=== PATIENT | male | born 1980 | race American Indian/Alaskan Native ===

== ENCOUNTER 2016-11-21 21:46 | Emergency (ER) | payer OTHER ==
[2016-11-22] MEDS ORDERED: NORCO 5/325 PO ONE (02:10)
--- NOTE | 2016-11-22 02:15 | Emergency Department Report ---
HPI - General Chief Complaint: Upper Respiratory Infection Time Seen by Provider: 11/22/16 02:03 - HPI HPI: 35-year-old male presents today with sore throat and chest pain 2 days. Positive for cough and congestion. Patient states that his children have been sick at home. Denies fever, chills, nausea, vomiting, shortness of breath, abdominal pain. Tried an antibiotic, name unknown, without relief. Positive for history of bronchitis and states this feels similar. ED Past Medical Hx - Past Medical History Previous Medical History?: Yes Additional medical history: BACK PROBLEMS /CHRONIC PAIN. BRONCHITIS - Surgical History Past Surgical History?: Yes Additional Surgical History: Right leg surgery from [facility] - Social History Smoking Status: Never Smoker Substance Use Type: None - Medications Home Medications: Home Medications Medication Instructions Recorded Confirmed Last Taken Type HYDROcodone/APAP 5-325 [[place] 1 each PO Q6HR PRN #20 tablet 09/15/15 Unknown Rx 5/325] predniSONE [Deltasone] 40 mg PO QDAY 5 Days 09/15/15 Unknown Rx Albuterol Sulfate [Ventolin HFA] 2 puff IH Q4H PRN #1 hfa.aer.ad 11/22/16 Unknown Rx Azithromycin [Zithromax Z-LOBITO] 1 pack PO DAILY 5 Days 11/22/16 Unknown Rx Promethazine Dm [Phenergan DM 5 ml PO Q6H PRN #30 oral.liqd 11/22/16 Unknown Rx 6.25-15 mg/5 ml] ED Review of Systems ROS: Stated complaint: COUGH/HEAD PAIN Other details as noted in HPI Constitutional: denies: chills, fever, malaise Eyes: denies: eye pain ENT: throat pain, congestion. denies: ear pain Respiratory: cough. denies: shortness of breath, wheezing Cardiovascular: chest pain. denies: palpitations Endocrine: no symptoms reported Gastrointestinal: denies: abdominal pain, nausea, vomiting Neurological: denies: headache, weakness Physical Exam - Physical Exam Vital Signs: Vital Signs 11/21/16 22:34 Temperature 98.2 F Pulse Rate 88 Blood Pressure 119/66 O2 Sat by Pulse 100 Oximetry Physical Exam: GENERAL: The patient is well-developed and well-nourished. Patient is in NAD. HEAD: Normocephalic. Atraumatic. EYES: PERRL. EARS: External auditory canals and tympanic membranes clear; hearing grossly intact. NOSE: Normal nasal mucosa with no nasal discharge. THROAT: Positive for erythema and tonsillomegaly. No tonsillar exudates noted. NECK: Supple, nontender, without lymphadenopathy. CHEST/LUNGS: Clear to auscultation throughout. HEART/CARDIOVASCULAR: Regular rate and rhythm. ABDOMEN: Abdomen is soft, nontender. No guarding or rebound tenderness. EXTREMITIES: Peripheral pulses intact. Capillary refill less than 2 seconds. NEURO: Alert and oriented x 3. Normal gait. ED Course Vital Signs 11/21/16 22:34 Temperature 98.2 F Pulse Rate 88 Blood Pressure 119/66 O2 Sat by Pulse 100 Oximetry ED Medical Decision Making - Lab Data Result diagrams: 11/22/16 02:41 11/22/16 02:41 Vital Signs 11/21/16 11/22/16 22:34 02:40 Temperature 98.2 F Pulse Rate 88 Respiratory 18 Rate Blood Pressure 119/66 O2 Sat by Pulse 100 Oximetry Lab Results 11/22/16 11/22/16 Range/Units 02:41 02:41 WBC 12.3 H (4.5-11.0) K/mm3 RBC 3.66 (3.65-5.03) M/mm3 Hgb 12.8 (11.8-15.2) gm/dl Hct 37.7 (35.5-45.6) % MCV 103 H (84-94) fl MCH 35 H (28-32) pg MCHC 34 (32-34) % RDW 12.5 L (13.2-15.2) % Plt Count 224 (140-440) K/mm3 Lymph % (Auto) 22.0 (13.4-35.0) % Piatt % (Auto) 8.0 H (0.0-7.3) % Eos % (Auto) 1.1 (0.0-4.3) % Baso % (Auto) 0.5 (0.0-1.8) % Lymph # 2.7 (1.2-5.4) K/mm3 Piatt # 1.0 H (0.0-0.8) K/mm3 Eos # 0.1 (0.0-0.4) K/mm3 Baso # 0.1 (0.0-0.1) K/mm3 Seg Neutrophils % 68.4 (40.0-70.0) % Seg Neutrophils # 8.4 H (1.8-7.7) K/mm3 Sodium 136 L (137-145) mmol/L Potassium 3.7 (3.6-5.0) mmol/L Chloride 100.0 (98-107) mmol/L Carbon Dioxide 26 (22-30) mmol/L Anion Gap 14 mmol/L BUN 10 (9-20) mg/dL Creatinine 0.6 L (0.8-1.5) mg/dL Estimated GFR > 60 ml/min BUN/Creatinine Ratio 16.66 % Glucose 80 (75-100) mg/dL Calcium 8.6 (8.4-10.2) mg/dL Total Creatine Kinase 183 H (55-170) units/L CK-MB (CK-2) 2.8 (0.0-4.0) ng/mL CK-MB (CK-2) Rel Index 1.5 (0-4) Troponin T < 0.010 (0.00-0.029) ng/mL - EKG Data -: EKG Interpreted by Me EKG shows normal: sinus rhythm Rate: normal - Radiology Data Radiology results: report reviewed Chest x-ray: Normal heart size. No pleural effusion or pneumothorax. Lungs are clear. No vascular congestion. - Medical Decision Making 35-year-old male presents today with sore throat and chest pain 2 days. His chest x-ray results revealed no acute findings. His lab results and EKG were reviewed. Patient is in no acute distress at this time. He will be discharged home and is encouraged to follow up with a primary care provider. He will be sent home on Z-Lobito, albuterol and promethazine DM and is encouraged to return to the emergency room for any worsening symptoms. Critical care attestation.: If time is entered above; I have spent that time in minutes in the direct care of this critically ill patient, excluding procedure time. ED Disposition Clinical Impression: Bronchitis Chest pain Qualifiers: Chest pain type: unspecified Qualified Code(s): R07.9 - Chest pain, unspecified URI (upper respiratory infection) Qualifiers: URI type: unspecified URI Qualified Code(s): J06.9 - Acute upper respiratory infection, unspecified Disposition: DISCHARGED TO HOME OR SELFCARE Is pt being admited?: No Does the pt Need Aspirin: No Condition: Stable Instructions: Chest Pain (ED), Upper Respiratory Infection (ED), Acute Bronchitis (ED) Additional Instructions: Follow-up with primary care provider. Return to the emergency department if symptoms worsen. Prescriptions: Albuterol Sulfate [Ventolin HFA] 2 puff IH Q4H PRN #1 hfa.aer.ad PRN Reason: Shortness Of Breath Azithromycin [Zithromax Z-LOBITO] 1 pack PO DAILY 5 Days Promethazine Dm [Phenergan DM 6.25-15 mg/5 ml] 5 ml PO Q6H PRN #30 oral.liqd PRN Reason: Cough Referrals: PRIMARY CARE, [Primary Care Provider] - 3-5 Days [facility] [Outside] - 3-5 Days Forms: Accompanied Note, Work/School Release Form(ED) Time of Disposition: 03:39
--- NOTE | 2016-11-22 02:37 | XRay Report ---
FINAL REPORT EXAM: XR CHEST ROUTINE 2V HISTORY: Chest Pain TECHNIQUE: 2 views of the chest PRIORS: 09/15/2015 FINDINGS: Normal heart size. No pleural effusion or pneumothorax. Lungs are clear. No vascular congestion. IMPRESSION: 1. No acute finding.
[2016-11-22 02:51] LABS: Basophils % (Auto) 0.5 % (0.0-1.8); Eosinophils % (Auto) 1.1 % (0.0-4.3); Hematocrit 37.7 % (35.5-45.6); Hemoglobin 12.8 gm/dl (11.8-15.2); Mean Corpuscular HGB Conc 34 % (32-34); Mean Corpuscular Hemoglobin 35 pg (28-32); Mean Corpuscular Volume 103 fl (84-94); Platelet Count 224 K/mm3 (140-440); Red Blood Count 3.66 M/mm3 (3.65-5.03); Red Cell Distribution Width 12.5 % (13.2-15.2); White Blood Count 12.3 K/mm3 (4.5-11.0)
[2016-11-22 03:07] LABS: Creatine Kinase MB 2.8 ng/mL (0.0-4.0)
[2016-11-22 03:08] LABS: Anion Gap 14 mmol/L; BUN/Creatinine Ratio 16.66; Blood Urea Nitrogen 10 mg/dL (9-20); Calcium 8.6 mg/dL (8.4-10.2); Carbon Dioxide 26 mmol/L (22-30); Creatine Kinase 183 units/L (55-170); Glucose 80 mg/dL (75-100); Potassium 3.7 mmol/L (3.6-5.0); Sodium 136 mmol/L (137-145)
[2016-11-22 04:05] VITALS: BP 120/72
== END 2016-11-22 04:09 | disposition home or self-care (01) ==
LOC: ED 21:46
DX: J40 Bronchitis, not specified as acute or chronic (principal); R07.9 Chest pain, unspecified; J06.9 Acute upper respiratory infection, unspecified; G89.29 Other chronic pain
CPT/HCPCS: 36415; 71020; 80048; 82550; 82553; 84484; 85025; 87116; 87430; 93005; 93010

== ENCOUNTER 2017-10-22 19:44 | Emergency (ER) | payer OTHER ==
[2017-10-22 20:16] VITALS: BP 120/77
[2017-10-22] MEDS ORDERED: PROVENTIL IH ONE (23:26)
[2017-10-22] MEDS ORDERED: ATROVENT IH ONE (23:26)
[2017-10-22] MEDS ORDERED: DUONEB *Not for PRN Use IH ONE (23:26)
--- NOTE | 2017-10-22 23:32 | Emergency Department Report ---
- General Chief Complaint: Upper Respiratory Infection Stated Complaint: COLD Time Seen by Provider: 10/22/17 23:25 Source: patient Mode of arrival: Ambulatory Limitations: No Limitations (she is not altered and there are no physical limitations as well as no language) - History of Present Illness Initial Comments: 36-year-old male here with a complaint of one week of coughing, body aches, chills, and congestion. He also complains of bone pain for a week. His symptoms she have been worse for the past couple of days. States that he just wants prescriptions for pain and antibiotics. He also has sick children at home. He is here with a productive cough with green sputum and using Mucinex at home. Patient is a smoker and had similar symptoms last year MD Complaint: fever, cough, rhinorrhea, nasal congestion -: week(s) (1) Severity: moderate Severity scale (0 -10): 2 Quality: aching Consistency: constant Improves With: other (Mucinex expectorant) Context: sick contacts (children and also at work) Associated Symptoms: myalgias, rhinorrhea, nasal congestion, cough Treatments Prior to Arrival: other (Mucinex) - Related Data Previous Rx's Medication Instructions Recorded Last Taken Type predniSONE [Deltasone] 40 mg PO QDAY 5 Days tab 09/15/15 Unknown Rx Promethazine Dm [Phenergan DM 5 ml PO Q6H PRN #30 oral.liqd 11/22/16 Unknown Rx 6.25-15 mg/5 ml] Albuterol Sulfate [Ventolin HFA] 2 puff IH Q4H PRN #1 hfa.aer.ad 10/23/17 Unknown Rx Azithromycin [Zithromax Z-LOBITO] 1 pack PO DAILY 5 Days tab 10/23/17 Unknown Rx HYDROcodone/APAP 5-325 [[place] 1 each PO Q6HR PRN #10 tablet 10/23/17 Unknown Rx 5-325 mg TAB] Allergies Allergy/AdvReac Type Severity Reaction Status Date / Time ibuprofen [From Motrin] Allergy Vomiting Verified 10/22/17 20:13 ED Review of Systems ROS: Stated complaint: COLD Other details as noted in HPI Constitutional: chills, fever Eyes: denies: eye pain, eye discharge, vision change ENT: denies: ear pain, throat pain Respiratory: cough. denies: shortness of breath, wheezing Cardiovascular: chest pain (with cough). denies: palpitations Endocrine: no symptoms reported Gastrointestinal: denies: abdominal pain, nausea, diarrhea Genitourinary: denies: urgency, dysuria Musculoskeletal: arthralgia, myalgia. denies: back pain, joint swelling Skin: denies: rash, lesions Neurological: denies: headache, weakness, paresthesias Psychiatric: denies: anxiety, depression Hematological/Lymphatic: denies: easy bleeding, easy bruising ED Past Medical Hx - Past Medical History Previous Medical History?: Yes Additional medical history: BACK PROBLEMS /CHRONIC PAIN. BRONCHITIS - Surgical History Past Surgical History?: Yes Additional Surgical History: Right leg surgery from [facility] - Family History Family history: hypertension - Social History Smoking Status: Current Some Day Smoker Substance Use Type: Marijuana - Medications Home Medications: Home Medications Medication Instructions Recorded Confirmed Last Taken Type predniSONE [Deltasone] 40 mg PO QDAY 5 Days tab 09/15/15 Unknown Rx Promethazine Dm [Phenergan DM 5 ml PO Q6H PRN #30 oral.liqd 11/22/16 Unknown Rx 6.25-15 mg/5 ml] Albuterol Sulfate [Ventolin HFA] 2 puff IH Q4H PRN #1 hfa.aer.ad 10/23/17 Unknown Rx Azithromycin [Zithromax Z-LOBITO] 1 pack PO DAILY 5 Days tab 10/23/17 Unknown Rx HYDROcodone/APAP 5-325 [[place] 1 each PO Q6HR PRN #10 tablet 10/23/17 Unknown Rx 5-325 mg TAB] ED Physical Exam - General Limitations: No Limitations (no altered mental status no physical limitation no language barrier), Other (smells of cigarette smoke) General appearance: alert, in no apparent distress - Head Head exam: Present: atraumatic, normocephalic - Eye Eye exam: Present: normal appearance, EOMI - ENT ENT exam: Present: mucous membranes moist - Neck Neck exam: Present: full ROM - Respiratory Respiratory exam: Present: wheezes (wheezing in the left lung field, right lung field is clear), rhonchi (left long rhonchi, right lung is clear). Absent: respiratory distress - Cardiovascular Cardiovascular Exam: Present: regular rate, normal rhythm - GI/Abdominal GI/Abdominal exam: Present: soft. Absent: distended, tenderness, guarding, rebound - Rectal Rectal exam: Present: deferred - Extremities Exam Extremities exam: Present: normal inspection, full ROM - Back Exam Back exam: Present: normal inspection, full ROM - Neurological Exam Neurological exam: Present: alert, oriented X3, CN II-XII intact - Psychiatric Psychiatric exam: Present: normal affect, normal mood - Skin Skin exam: Present: warm, dry, intact, normal color ED Course Vital Signs 10/22/17 20:13 Temperature 97.5 F L Pulse Rate 88 Respiratory 14 Rate Blood Pressure 120/77 O2 Sat by Pulse 100 Oximetry ED Medical Decision Making - Radiology Data Radiology results: report reviewed (chest x-ray: Mild hyperinflation, no acute findings) Critical care attestation.: If time is entered above; I have spent that time in minutes in the direct care of this critically ill patient, excluding procedure time. ED Disposition Clinical Impression: Viral syndrome Acute bronchitis Qualifiers: Bronchitis organism: unspecified organism Qualified Code(s): J20.9 - Acute bronchitis, unspecified Disposition: - TO HOME OR SELFCARE Is pt being admited?: Yes Does the pt Need Aspirin: No Condition: Stable Instructions: Acute Bronchitis (ED) Additional Instructions: Please follow-up with your doctor in 2 days. He may return to the emergency department if your symptoms worsen or if he would experience new symptoms. Please stop smoking cigarettes. Please ask her doctor for help if you need help in stopping cigarette smoking. If you have chest pain shortness of breath that is different from what you're having today please return to emergency department. Prescriptions: Albuterol Sulfate [Ventolin HFA] 2 puff IH Q4H PRN #1 hfa.aer.ad PRN Reason: Shortness Of Breath Azithromycin [Zithromax Z-LOBITO] 1 pack PO DAILY 5 Days tab HYDROcodone/APAP 5-325 [[place] 5-325 mg TAB] 1 each PO Q6HR PRN #10 tablet PRN Reason: Pain Referrals: ANA CASSIDY MD [Primary Care Provider] - 3-5 Days [facility] [Outside] - 3-5 Days [facility] [Outside] - 3-5 Days Forms: Work/School Release Form(ED) Time of Disposition: 23:36
--- NOTE | 2017-10-23 00:45 | XRay Report ---
FINAL REPORT EXAM: XR CHEST ROUTINE 2V HISTORY: cough TECHNIQUE: PA and lateral views of the chest were submitted. Comparison is made to the previous study of 11/22/2016. FINDINGS: The heart size and mediastinum appear normal. The lungs are clear. The lungs are hyperinflated. Pleural fluid is not seen. The bones and soft tissues appear well maintained IMPRESSION: Slight hyperinflation. No acute process in the chest.
[2017-10-23] MEDS ORDERED: D50W (25GM) Syringe IV ONE (01:03)
== END 2017-10-23 01:16 | disposition home or self-care (01) ==
LOC: ED 19:44
DX: J20.9 Acute bronchitis, unspecified (principal); B34.9 Viral infection, unspecified; F17.200 Nicotine dependence, unspecified, uncomplicated; Z88.6 Allergy status to analgesic agent; Z98.890 Other specified postprocedural states
CPT/HCPCS: 71046; 87400; 99283

== ENCOUNTER 2018-04-14 08:31 | Emergency (ER) | payer SELFPAY ==
[2018-04-14] MEDS ORDERED: KEFLEX PO ONE (09:55)
[2018-04-14] MEDS ORDERED: BENADRYL PO ONE (09:55)
[2018-04-14] MEDS ORDERED: ZOFRAN ODT PO ONE (09:58)
[2018-04-14] MEDS ORDERED: TYLENOL PO ONE (09:58)
[2018-04-14] MEDS ORDERED: MOTRIN PO ONE (10:04)
--- NOTE | 2018-04-14 10:22 | Emergency Department Report ---
ED Allergic Reaction HPI - General Chief complaint: Allergic Reaction Stated complaint: SPIDER BITE Time Seen by Provider: 04/14/18 09:47 Source: patient Mode of arrival: Ambulatory Limitations: No Limitations - History of Present Illness Initial Comments: Patient states that yesterday, he was bitten on his left arm by a brown spider. Afterwards, he has developed pain and itching at the site of the bite. He also has had a mild headache, generalized weakness, and nausea. Patient is concerned that venom could be spreading throughout his body. - Related Data Previous Rx's Medication Instructions Recorded Last Taken Type predniSONE [Deltasone] 40 mg PO QDAY 5 Days tab 09/15/15 Unknown Rx Promethazine Dm [Phenergan DM 5 ml PO Q6H PRN #30 oral.liqd 11/22/16 Unknown Rx 6.25-15 mg/5 ml] Albuterol Sulfate [Ventolin HFA] 2 puff IH Q4H PRN #1 hfa.aer.ad 10/23/17 Unknown Rx Azithromycin [Zithromax Z-LOBITO] 1 pack PO DAILY 5 Days tab 10/23/17 Unknown Rx HYDROcodone/APAP 5-325 [[place] 1 each PO Q6HR PRN #10 tablet 10/23/17 Unknown Rx 5-325 mg TAB] Cephalexin [Keflex] 500 mg PO Q8HR #15 cap 04/14/18 Unknown Rx Allergies Allergy/AdvReac Type Severity Reaction Status Date / Time ibuprofen [From Motrin] Allergy Vomiting Verified 04/14/18 09:58 ED Review of Systems ROS: Stated complaint: SPIDER BITE Other details as noted in HPI Comment: All other systems reviewed and negative Skin: rash Neurological: headache, weakness ED Past Medical Hx - Past Medical History Previous Medical History?: No Additional medical history: BACK PROBLEMS /CHRONIC PAIN. BRONCHITIS - Surgical History Additional Surgical History: Right leg surgery from [facility] - Social History Smoking Status: Current Every Day Smoker - Medications Home Medications: Home Medications Medication Instructions Recorded Confirmed Last Taken Type predniSONE [Deltasone] 40 mg PO QDAY 5 Days tab 09/15/15 Unknown Rx Promethazine Dm [Phenergan DM 5 ml PO Q6H PRN #30 oral.liqd 11/22/16 Unknown Rx 6.25-15 mg/5 ml] Albuterol Sulfate [Ventolin HFA] 2 puff IH Q4H PRN #1 hfa.aer.ad 10/23/17 Unknown Rx Azithromycin [Zithromax Z-LOBITO] 1 pack PO DAILY 5 Days tab 10/23/17 Unknown Rx HYDROcodone/APAP 5-325 [[place] 1 each PO Q6HR PRN #10 tablet 10/23/17 Unknown Rx 5-325 mg TAB] Cephalexin [Keflex] 500 mg PO Q8HR #15 cap 04/14/18 Unknown Rx ED Physical Exam - General Limitations: No Limitations General appearance: alert, in no apparent distress - Head Head exam: Present: atraumatic, normocephalic - Eye Eye exam: Present: normal appearance - ENT ENT exam: Present: mucous membranes moist - Neck Neck exam: Present: normal inspection - Respiratory Respiratory exam: Absent: respiratory distress - Cardiovascular Cardiovascular Exam: Present: regular rate, normal rhythm - GI/Abdominal GI/Abdominal exam: Present: soft, normal bowel sounds - Rectal Rectal exam: Present: deferred - Extremities Exam Extremities exam: Present: normal inspection - Back Exam Back exam: Present: normal inspection - Neurological Exam Neurological exam: Present: alert, oriented X3 - Psychiatric Psychiatric exam: Present: normal affect, normal mood - Skin Skin exam: Present: warm, dry, other (mild erythema seen over left tricep. No induration/fluctuance. Excoriations seen at the site. ). Absent: rash ED Course Vital Signs 04/14/18 04/14/18 08:52 09:23 Temperature 98.4 F Pulse Rate 107 H Respiratory 16 18 Rate Blood Pressure 141/84 O2 Sat by Pulse 96 Oximetry ED Medical Decision Making - Medical Decision Making 37-year-old male with no significant past medical history that presents status post insect bite with concerns for envenomation. Patient is well-appearing. Vital signs initially had a heart rate of 107. This resolved without intervention. Physical exam appears to be consistent with cellulitis without evidence of abscess. Patient will be placed on Keflex and topical Benadryl. He was given Tylenol and Zofran for his headache/nausea. Pt has been walking around the ER on his phone throughout his stay. Patient is cleared for discharge. Low suspicion for sepsis at this point time. - Differential Diagnosis cellulitis, abscess, sepsis, compartment syndrome, envenomation Critical care attestation.: If time is entered above; I have spent that time in minutes in the direct care of this critically ill patient, excluding procedure time. ED Disposition Clinical Impression: Cellulitis, Insect bite Disposition: DC-01 TO HOME OR SELFCARE Is pt being admited?: No Does the pt Need Aspirin: No Condition: Stable Instructions: Cellulitis (ED) Additional Instructions: Apply topical benadryl to your arm. This can be purchased over the counter. Avoid scratching your arm in the meantime. Take your antibiotics as prescribed. Prescriptions: Cephalexin [Keflex] 500 mg PO Q8HR #15 cap Referrals: PRIMARY CARE, [Primary Care Provider] - 3-5 Days
[2018-04-14 10:38] VITALS: BP 124/80
== END 2018-04-14 10:36 | disposition home or self-care (01) ==
LOC: ED 08:31
DX: S40.862A Insect bite (nonvenomous) of left upper arm, initial encounter (principal); L03.114 Cellulitis of left upper limb; W57.XXXA Bitten or stung by nonvenomous insect and other nonvenomous arthropods, initial encounter; R51 Headache; R11.0 Nausea; R53.1 Weakness; F17.200 Nicotine dependence, unspecified, uncomplicated; Z88.6 Allergy status to analgesic agent; Y93.89 Activity, other specified; Y92.89 Other specified places as the place of occurrence of the external cause; Y99.8 Other external cause status
CPT/HCPCS: 99282; Q0162

== ENCOUNTER 2018-10-18 16:25 | Emergency (ER) | payer SELFPAY ==
[2018-10-18 16:35] VITALS: BP 116/88
--- NOTE | 2018-10-18 17:58 | Cat Scan Report ---
FINAL REPORT EXAM: CT HEAD/BRAIN WO CON HISTORY: Fall, [place] TECHNIQUE: 2.5 millimeter axial images from the skullbase to the vertex. Comparison: None FINDINGS: There is no evidence of an acute intracranial process, intracranial hemorrhage or mass effect. The ventricles are normal size. The visualized portions of the orbits, paranasal and mastoid sinuses are unremarkable. There is no evidence of fracture. IMPRESSION: 1. No evidence of an acute intracranial process, intracranial hemorrhage or mass effect. 2. No evidence of fracture.
--- NOTE | 2018-10-18 18:36 | XRay Report ---
FINAL REPORT PROCEDURE: XR SHOULDER 2+V RT TECHNIQUE: Right shoulder, three views HISTORY: Fall, pain COMPARISON: No prior studies are available for comparison. FINDINGS: No acute fracture or dislocation is seen. No focal osseous lesions. IMPRESSION: No acute fracture is identified
--- NOTE | 2018-10-18 18:43 | XRay Report ---
FINAL REPORT PROCEDURE: XR FEMUR 2+V RT TECHNIQUE: Right femur, AP and lateral views HISTORY: Fall, pain COMPARISON: No prior studies are available for comparison. FINDINGS: No fracture or joint dislocation is seen. No radiopaque foreign body. No focal osseous lesions are se en. IMPRESSION: No fracture is seen
[2018-10-18] MEDS ORDERED: ULTRAM PO ONE (19:58)
[2018-10-18] MEDS ORDERED: ULTRAM ONE (19:59)
--- NOTE | 2018-10-18 20:35 | Emergency Department Report ---
ED Fall HPI - General Chief Complaint: Fall Stated Complaint: INJURED AT WORK Time Seen by Provider: 10/18/18 19:59 Source: patient Mode of arrival: Ambulatory - History of Present Illness Initial Comments: This is a 37-year-old male nontoxic, well nourished in appearance, no acute signs of distress presents to the ED with c/o of right thigh, shoulder, and intermittent headache pain. Patient stated that he had a fall from the dock at work yesterday and landed on thigh and right shoulder area and hit his head. Denies any loss of consciousness. He describes headache as diffuse aching with level of 3-10. Denies any thunderclap headache or worse headache. Denies any visual changes. Patient denies any other trauma. Patient denies any back pain or neck pain. Patient denies any numbness, tingling, fever, chills, nausea, vomiting, chest pain, shortness of breath, stiff neck. Patient denies any joint swelling or joint redness. Patient denies decreased range of motion. Patient stated has decreased gait due to pain. Patient states allergies to ibuprofen with history of chronic back pain. MD Complaint: fall -: days(s) (1) Place Fall Occurred: work Loss of Consciousness: none Prolonged Down Time?: no Symptoms Prior to Fall: none Location: head Location - Extremities: Right: Shoulder, Thigh Severity: mild Severity scale (0 -10): 3 Quality: aching Context: tripped/slipped Associated Symptoms: headache. denies: neck pain, numbness, weakness, chest paint, shortness of breath, abdominal pain, hematuria, unable to walk, lightheaded, vertigo, confusion - Related Data Previous Rx's Medication Instructions Recorded Last Taken Type predniSONE [Deltasone] 40 mg PO QDAY 5 Days tab 09/15/15 Unknown Rx Promethazine Dm (Nf) [Phenergan DM 5 ml PO Q6H PRN #30 oral.liqd 11/22/16 Unknown Rx 6.25-15 mg/5 ml] Albuterol Sulfate [Ventolin HFA] 2 puff IH Q4H PRN #1 hfa.aer.ad 10/23/17 Unknown Rx Azithromycin [Zithromax Z-LOBITO] 1 pack PO DAILY 5 Days tab 10/23/17 Unknown Rx HYDROcodone/APAP 5-325 [Martinez 1 each PO Q6HR PRN #10 tablet 10/23/17 Unknown Rx 5-325 mg TAB] cephALEXin [Keflex] 500 mg PO Q8HR #15 cap 04/14/18 Unknown Rx Acetaminophen 500 mg PO Q8H PRN #20 tablet 10/18/18 Unknown Rx Cyclobenzaprine [Flexeril] 10 mg PO QHS PRN #10 tablet 10/18/18 Unknown Rx Allergies Allergy/AdvReac Type Severity Reaction Status Date / Time ibuprofen [From Motrin] Allergy Vomiting Verified 04/14/18 09:58 ED Review of Systems ROS: Stated complaint: INJURED AT WORK Other details as noted in HPI Constitutional: denies: chills, fever Eyes: denies: eye pain, eye discharge, vision change ENT: denies: ear pain, throat pain Respiratory: denies: cough, shortness of breath, wheezing Cardiovascular: denies: chest pain, palpitations Endocrine: no symptoms reported Gastrointestinal: denies: abdominal pain, nausea, diarrhea Genitourinary: denies: urgency, dysuria Musculoskeletal: arthralgia. denies: back pain, joint swelling Skin: denies: rash, lesions Neurological: headache. denies: weakness, paresthesias Psychiatric: denies: anxiety, depression Hematological/Lymphatic: denies: easy bleeding, easy bruising ED Past Medical Hx - Past Medical History Previous Medical History?: Yes Additional medical history: BACK PROBLEMS /CHRONIC PAIN. BRONCHITIS - Surgical History Past Surgical History?: Yes Additional Surgical History: [facility] - Social History Smoking Status: Current Every Day Smoker Substance Use Type: Alcohol - Medications Home Medications: Home Medications Medication Instructions Recorded Confirmed Last Taken Type predniSONE [Deltasone] 40 mg PO QDAY 5 Days tab 09/15/15 Unknown Rx Promethazine Dm (Nf) [Phenergan DM 5 ml PO Q6H PRN #30 oral.liqd 11/22/16 Unk nown Rx 6.25-15 mg/5 ml] Albuterol Sulfate [Ventolin HFA] 2 puff IH Q4H PRN #1 hfa.aer.ad 10/23/17 Unknown Rx Azithromycin [Zithromax Z-LOBITO] 1 pack PO DAILY 5 Days tab 10/23/17 Unknown Rx HYDROcodone/APAP 5-325 [Martinez 1 each PO Q6HR PRN #10 tablet 10/23/17 Unknown Rx 5-325 mg TAB] cephALEXin [Keflex] 500 mg PO Q8HR #15 cap 04/14/18 Unknown Rx Acetaminophen 500 mg PO Q8H PRN #20 tablet 10/18/18 Unknown Rx Cyclobenzaprine [Flexeril] 10 mg PO QHS PRN #10 tablet 10/18/18 Unknown Rx ED Physical Exam - General Limitations: No Limitations General appearance: alert, in no apparent distress - Head Head exam: Present: atraumatic, normocephalic - Eye Eye exam: Present: normal appearance, PERRL, EOMI - Neck Neck exam: Present: normal inspection, full ROM. Absent: tenderness, meningismus, lymphadenopathy - Respiratory Respiratory exam: Present: normal lung sounds bilaterally. Absent: respiratory distress, wheezes, rales, rhonchi, stridor, chest wall tenderness, accessory muscle use, decreased breath sounds, prolonged expiratory - Cardiovascular Cardiovascular Exam: Present: regular rate, normal rhythm, normal heart sounds. Absent: bradycardia, tachycardia, irregular rhythm, systolic murmur, diastolic murmur, rubs, gallop - Extremities Exam Extremities exam: Present: normal inspection, full ROM, tenderness, normal capillary refill. Absent: joint swelling, calf tenderness - Expanded Upper Extremity Exam Right General: Present: normal inspection Shoulder Exam: Present: normal inspection, full ROM, tenderness. Absent: swelling, abrasion, laceration, ecchymosis, deformity, crepidus, dislocation, erythema, tenderness over AC joint Upper Arm exam: Present: normal inspection, full ROM. Absent: tenderness Elbow exam: Present: normal inspection, full ROM. Absent: tenderness Forearm Wrist exam: Present: normal inspection, full ROM. Absent: tenderness Hand Wrist exam: Present: normal inspection, full ROM. Absent: tenderness Vascular: Present: vascular compromise, normal capillary refill - Expanded Lower Extremity Exam Right Hip exam: Present: normal inspection, full ROM. Absent: tenderness, swelling Upper Leg exam: Present: normal inspection, full ROM, tenderness. Absent: swelling, abrasion, laceration, ecchymosis, deformity, crepidus, dislocation, erythema Knee exam: Present: normal inspection, full ROM. Absent: tenderness Lower Leg exam: Present: normal inspection, full ROM. Absent: tenderness Ankle exam: Present: normal inspection, full ROM. Absent: tenderness Foot/Toe exam: Present: normal inspection, full ROM. Absent: tenderness Neuro vascular tendon exam: Present: no vascular compromise Gait: Positive: observed and normal - Back Exam Back exam: Present: normal inspection, full ROM. Absent: tenderness, CVA tenderness (R), CVA tenderness (L), muscle spasm, paraspinal tenderness, vertebral tenderness, rash noted - Neurological Exam Neurological exam: Present: alert, oriented X3 - Psychiatric Psychiatric exam: Present: normal affect, normal mood - Skin Skin exam: Present: warm, dry, intact, normal color. Absent: rash ED Course Vital Signs 10/18/18 16:32 Temperature 98.5 F Pulse Rate 74 Respiratory 16 Rate Blood Pressure 116/88 O2 Sat by Pulse 95 Oximetry - Reevaluation(s) Reevaluation #1: 10/18/18 20:43 Patient is speaking in full sentences with no signs of distress noted. ED Medical Decision Making - Medical Decision Making This is a 37-year-old male that presents with fall injuries. Patient is stable and was examined by me. I referred patient to an orthopedic doctor for further evaluation for possible MRI. X-ray and head CT has been obtained and dictated by the radiologist all within normal limits. Patient is notified of the x- ray/CT report with noted by the patient. Patient does have normal gait with no tenderness and no joint swelling. No ecchymosis. no joint redness or swelling. Not warm to touch. No signs of cellulites present. Patient was instructed to RICE therapy. Patient received Tramadol for pain and stated someone will drive the patient home after discharge due to possible thousand and. Patient is discharged with Tylenol and Flexeril. At time of discharge, the patient does not seem toxic or ill in appearance. No acute signs of distress noted. Patient agrees to discharge treatment plan of care. No further questions noted by the patient. Critical care attestation.: If time is entered above; I have spent that time in minutes in the direct care of this critically ill patient, excluding procedure time. ED Disposition Clinical Impression: Head contusion Qualifiers: Encounter type: initial encounter Contusion of head detail: unspecified part of head Qualified Code(s): S00.93XA - Contusion of unspecified part of head, initial encounter Fall Qualifiers: Encounter type: initial encounter Qualified Code(s): W19.XXXA - Unspecified fall, initial encounter Muscle strain of right lower leg Qualifiers: Encounter type: initial encounter Qualified Code(s): S86.911A - Strain of unspecified muscle(s) and tendon(s) at lower leg level, right leg, initial encounter Right shoulder strain Qualifiers: Encounter type: initial encounter Qualified Code(s): S46.911A - Strain of unspecified muscle, fascia and tendon at shoulder and upper arm level, right arm, initial encounter Disposition: TO HOME OR SELFCARE Is pt being admited?: No Does the pt Need Aspirin: No Condition: Stable Instructions: Muscle Strain (ED), Cyclobenzaprine (By mouth) Additional Instructions: Follow-up with your primary care doctor in 3-5 days or if symptoms worsen such as bladder or bowel stability, chest pain, short of breath, numbness or tingling sensation in extremities, headache, dizziness, visual changes, nausea vomiting, or abdominal pain, return back to emergency room as was possible. Take Tylenol and Flexeril as prescribed. Do not operate heavy machinery while taking Flexeril due to sedation Prescriptions: Cyclobenzaprine [Flexeril] 10 mg PO QHS PRN #10 tablet PRN Reason: Muscle Spasm Acetaminophen 500 mg PO Q8H PRN #20 tablet PRN Reason: Pain , Severe (7-10) Referrals: PRIMARY CARE, [Primary Care Provider] - 3-5 Days SHABANA PERDUE MD [Staff Physician] - 3-5 Days [facility] [Outside] - 3-5 Days [facility] [Outside] - 3-5 Days Forms: Work/School Release Form(ED)
== END 2018-10-18 20:56 | disposition home or self-care (01) ==
LOC: ED 16:25
DX: S46.911A Strain of unspecified muscle, fascia and tendon at shoulder and upper arm level, right arm, initial encounter (principal); S86.911A Strain of unspecified muscle(s) and tendon(s) at lower leg level, right leg, initial encounter; S00.93XA Contusion of unspecified part of head, initial encounter; F17.200 Nicotine dependence, unspecified, uncomplicated; Z88.6 Allergy status to analgesic agent; W18.30XA Fall on same level, unspecified, initial encounter; Y93.89 Activity, other specified; Y92.69 Other specified industrial and construction area as the place of occurrence of the external cause; Y99.8 Other external cause status
CPT/HCPCS: 70450

== ENCOUNTER 2019-01-22 11:27 | Emergency (ER) | payer SELFPAY ==
[2019-01-22 11:32] VITALS: BP 121/66
[2019-01-22] MEDS ORDERED: DELTASONE PO ONE (12:49)
--- NOTE | 2019-01-22 12:51 | Emergency Department Report ---
Minor Respiratory - HPI Chief Complaint: Eye Problems Stated Complaint: POSSIBLE ALLERGIC REACTION Time Seen by Provider: 01/22/19 12:47 Duration: 2 Days Pain Location: Throat, Chest Severity: mild Minor Respiratory: Yes Able to Tolerate Fluids, Yes Cough, Yes Fever, No Rhinorrhea, No Sore Throat, No Ear Pain, No Sick Contacts, No Hemoptysis, No Chest Pain, No Shortness of Breath Other History: Patient is a 38-year-old male who comes in with acute on chronic bronchitis. He states that he does not have asthma. He states that the pollen has just been aggravating him making his eyes water giving him a cough and at times make him wheeze. He is currently on no home medications. ED Review of Systems ROS: Stated complaint: POSSIBLE ALLERGIC REACTION Other details as noted in HPI Comment: All other systems reviewed and negative Constitutional: fever Eyes: eye discharge Respiratory: see HPI, cough ED Past Medical Hx - Past Medical History Previous Medical History?: Yes Additional medical history: BACK PROBLEMS /CHRONIC PAIN. BRONCHITIS - Surgical History Past Surgical History?: Yes Additional Surgical History: Right leg surgery from [facility] - Family History Family history: no significant - Social History Smoking Status: Current Every Day Smoker Substance Use Type: Alcohol, Marijuana - Medications Home Medications: Home Medications Medication Instructions Recorded Confirmed Last Taken Type Albuterol Sulfate [Ventolin HFA] 2 puff IH Q4H PRN #1 hfa.aer.ad 01/22/19 Unknown Rx Amoxicillin 500 mg PO BID #20 capsule 01/22/19 Unknown Rx Cetirizine HCl [ZyrTEC] 10 mg PO DAILY #30 capsule 01/22/19 Unknown Rx Fluticasone [Flonase] 1 spray NS QDAY #1 bottle 01/22/19 Unknown Rx predniSONE [Deltasone] 20 mg PO DAILY #5 tablet 01/22/19 Unknown Rx Minor Respiratory Exam - Exam General: Vital signs noted. No distress. Alert and acting appropriately. HEENT: Yes Moist Mucous Membranes, Yes Rhinorrhea, No Pharyngeal Erythema, No Pharyngeal Exudates, No Conjuctival Injection, No Frontal Tenderness, No Maxillary Tenderness Ear: Neither TM Bulge, Neither TM Erythema, Neither EAC Pain, Neither EAC Discharge Neck: Yes Supple, No Adenopathy Lungs: Yes Good Air Exchange, No Wheezes, No Ronchi, No Stridor, No Cough, No Labored Respirations, No Retractions, No Use of Accessory Muscles, No Other Abnormal Lung Sounds Heart: Yes Regular, No Murmur Abdomen: Yes Normal Bowel Sounds, No Tenderness Skin: No Rash, No Edema Neurologic: Alert and oriented, no deficits. Musculoskeletal: Unremarkable. ED Course Vital Signs 01/22/19 11:31 Temperature 99.8 F H Pulse Rate 104 H Respiratory 16 Rate Blood Pressure 121/66 O2 Sat by Pulse 100 Oximetry ED Medical Decision Making - Medical Decision Making simple urti medicated in ER and dc home with dc poc Vital Signs 01/22/19 11:31 Temperature 99.8 F H Pulse Rate 104 H Respiratory 16 Rate Blood Pressure 121/66 O2 Sat by Pulse 100 Oximetry Critical care attestation.: If time is entered above; I have spent that time in minutes in the direct care of this critically ill patient, excluding procedure time. ED Disposition Clinical Impression: Acute bronchitis, Allergic rhinitis Disposition: DC-01 TO HOME OR SELFCARE Is pt being admited?: No Does the pt Need Aspirin: No Condition: Stable Instructions: Acute Bronchitis (ED) Additional Instructions: DIET TOLERATED MEDS ORDERED FOLLOW UP PCP ACTIVITY TOLERATED MOTRIN OR TYLENOL FOR PAIN OR FEVER Referrals: [facility] [Outside] - 3-5 Days Time of Disposition: 12:49
== END 2019-01-22 13:18 | disposition home or self-care (01) ==
LOC: ED 11:27
DX: J30.9 Allergic rhinitis, unspecified (principal); J20.9 Acute bronchitis, unspecified; F17.200 Nicotine dependence, unspecified, uncomplicated; F12.10 Cannabis abuse, uncomplicated; G89.29 Other chronic pain; Z88.6 Allergy status to analgesic agent
CPT/HCPCS: 99282; J7512

== ENCOUNTER 2019-03-29 08:28 | Emergency (ER) | payer SELFPAY ==
[2019-03-29] MEDS ORDERED: BOOSTRIX IM ONE (08:32)
[2019-03-29] MEDS ORDERED: ZOFRAN IV ONE (08:38)
[2019-03-29] MEDS ORDERED: ZOFRAN ONE (08:40)
[2019-03-29] MEDS ORDERED: MORPHINE ONE (08:40)
[2019-03-29 08:41] LABS: Hemoglobin 13.9 gm/dl (11.8-15.2); Mean Corpuscular HGB Conc 35 % (32-34); Mean Corpuscular Volume 104 fl (84-94); Platelet Count 284 K/mm3 (140-440); Red Blood Count 3.84 M/mm3 (3.65-5.03); Red Cell Distribution Width 12.5 % (13.2-15.2)
[2019-03-29] MEDS ORDERED: MORPHINE IV ONE (08:43)
[2019-03-29 08:53] LABS: BUN/Creatinine Ratio 16; Blood Urea Nitrogen 14 mg/dL (9-20); Calcium 8.6 mg/dL (8.4-10.2); Hemolysis Index 8; INR 1.15 (0.87-1.13)
[2019-03-29 08:54] LABS: Partial Thromboplastin Time 30.9 Sec. (24.2-36.6)
[2019-03-29 08:56] LABS: Alanine Aminotransferase 15 units/L (7-56); Albumin 3.8 g/dL (3.9-5)
[2019-03-29 08:57] LABS: Bilirubin,Direct < 0.2 mg/dL (0-0.2)
[2019-03-29 09:19] LABS: Creatine Kinase MB 3.9 ng/mL (0.0-4.0)
--- NOTE | 2019-03-29 09:37 | Cat Scan Report ---
CT HEAD WITHOUT CONTRAST INDICATION: Headache. COMPARISON: 10/18/2018. FINDINGS: Noncontrast head CT again demonstrates normal ventricles and sulci without acute or recent infarct, hemorrhage, mass effect or midline shift. No abnormal extra axial fluid collections. Normal posterior fossa with preserved basilar cisterns. Extensive new left facial trauma partially imaged and described separately. Air-fluid level noted in the left maxillary sinus. Extensive bilateral ethmoid air cell opacification. Mild bilateral sphenoid sinus mucosal thickening is also new. Left orbital/maxillary sinus wall fracture may be incompletely imaged. Intact remainder calvarium. Normal scalp soft tissues. CONCLUSION: New left facial trauma without acute intracranial CT abnormality, as described. Thank you for the opportunity to participate in this patient's care.
--- NOTE | 2019-03-29 09:43 | Cat Scan Report ---
CT CERVICAL SPINE WITHOUT CONTRAST INDICATION: Trauma. COMPARISON: None similar. FINDINGS: Noncontrast axial, sagittal and coronal CT reconstructions of the cervical spine demonstrate normal visualized intracranial appearance. Assessment of the spinal canal from C7 inferiorly also compromised due to artifact from shoulder soft tissues. Limited patient positioning. Clear included mastoid air cells. Symmetric occipital condyles. Normal anterior and posterior arches of C1. Intact craniocervical articulation with normal predental space, prevertebral soft tissues, vertebral body stature, alignment, disc heights and posterior elements. Slight disc bulge/osteophyte complex at C4-C5; no other large disc protrusion at any level suspected. Normal included thyroid. Biapical emphysematous changes, including a 3.5 cm bulla on the right anteriorly. CONCLUSION: No acute cervical spine CT abnormality with few incidental findings, as above. Please correlate. Thank you for the opportunity to participate in this patient's care.
[2019-03-29 10:00] LABS: Band Neutrophils # (Manual) 0.7 K/mm3; Basophils % (Manual) 0 % (0.0-1.8); Eosinophils % (Manual) 0 % (0.0-4.3); Total Cells Counted 100
--- NOTE | 2019-03-29 10:00 | Cat Scan Report ---
CT FACIAL BONES WITHOUT CONTRAST: INDICATION: Trauma. COMPARISON: None similar. FINDINGS: Noncontrast axial, sagittal and coronal CT reconstructions through the face demonstrate normal imaged intracranial appearance. However, left proptosis and left periorbital soft tissue swelling extending to the face and some to the frontal scalp noted in this patient with left intraorbital emphysema inferiorly as on coronal image 23 without ocular muscle entrapment. Left orbital floor/maxillary sinus roof fracture, slightly displaced by approximately 2-3 mm may also be seen, not excluded involving the left infraorbital foramen. Asymmetric nondisplaced fracture line through the left frontozygomatic tip also noted as on axial image 85, series 3. Imaged zygomatic arches appear intact as also the imaged TMJs. Slight, 1 mm left nasal bone fracture offset, axial image 75. Overlying nasal soft tissue swelling also noted. Moderate left maxillary sinus opacification with air-fluid level, likely hemorrhagic. Moderate to severe ethmoid air cell opacification, left more than right. Mild right maxillary sinus mucosal thickening inferiorly also seen. Mild bilateral maxillary sinus mucosal thickening as well. Somewhat hypoplastic frontal sinuses with mild frontoethmoid mucosal thickening on the left. Clear imaged mastoid air cells. Mild leftward nasal septal deviation with subtle nasal septal lucency/fracture also not excluded as on axial image 72. Occluded ostiomeatal complexes bilaterally. Preserved contours of the eye globes bilaterally with orthotopic position of the lenses. Retrobulbar fat remains hypodense. Extensive dental disease noted. CONCLUSION: 1. Left orbital floor/maxillary sinus roof acute, slightly displaced fracture with left infraorbital foramen involvement not excluded, as detailed above. Left orbital emphysema inferiorly with proptosis and left-sided periorbital soft tissue swelling also seen. 2. Extensive sinus opacification, as described. 3. Various other findings, including subtle left nasal bone fracture as well. Thank you for the opportunity to participate in this patient's care.
[2019-03-29 10:01] LABS: Platelet Estimate Consistent w Auto; RBC Morphology Normal
[2019-03-29] MEDS ORDERED: NORCO 5/325 PO ONE (10:24)
[2019-03-29 11:07] LABS: Bilirubin,Urine NEG (Negative); Blood,Urine NEG (Negative); Color,Urine Yellow (Yellow); Mucus,Urine 1+ /HPF; Protein,Urine <15 mg/dL mg/dL (Negative); Urobilinogen,Urine < 2.0 mg/dL (<2.0); WBC,Urine < 1.0 /HPF (0.0-6.0)
[2019-03-29 11:18] LABS: Amphetamine Screen,Urine PRESUMPTIVE NEGATIVE; Benzodiazepines Screen,Urine PRESUMPTIVE NEGATIVE; Cannabinoid Screen,Urine PRESUMPTIVE NEGATIVE; Methadone Screen,Urine PRESUMPTIVE NEGATIVE; Opiate Screen,Urine PRESUMPTIVE NEGATIVE
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
[2019-03-29 11:31] LABS: Cocaine Screen,Urine PRESUMPTIVE POSITIVE
[2019-03-29 12:01] VITALS: BP 95/62
== END 2019-03-29 13:34 | disposition other institution (70) ==
LOC: EEVIPCON 08:28 → ED 08:28
DX: S02.32XA Fracture of orbital floor, left side, initial encounter for closed fracture (principal); Z88.6 Allergy status to analgesic agent; G89.29 Other chronic pain; Y08.89XA Assault by other specified means, initial encounter; Y93.89 Activity, other specified; Y92.89 Other specified places as the place of occurrence of the external cause; Y99.8 Other external cause status
CPT/HCPCS: 36415; 70450; 70486; 72125; 80048; 80076; 80307; 81001; 82550; 82553; 82962; 83735; 84484; 85007; 85025; 85610; 85730; 90471; 90715; 96374; 96375; 99285; J2270; J2405

== ENCOUNTER 2020-03-11 14:20 | Emergency (ER) | payer SELFPAY ==
[2020-03-11 14:27] VITALS: BP 134/92
--- NOTE | 2020-03-11 16:08 | Emergency Department Report ---
ED Eye Problem HPI - General Chief complaint: Eye Problems Stated complaint: EYE DISCOMFORT/RED/PAIN Time Seen by Provider: 03/11/20 15:17 Source: patient Mode of arrival: Ambulatory Limitations: No Limitations - History of Present Illness Initial comments: This is a 39-year-old male presents the ED complaining of redness to the eye and irritation for the past week. Patient states that symptoms initially began with the left eye and now has progressed to both eyes. Patient states that he has had some pus noted every morning when he wakes up. Patient states he is able to wipe away the dried pus with warm clothing. Patient denies any eye injury, contact use, foreign body to the eyes. Patient denies blurry vision, dizziness or headache or swelling to the eyes MD chief complaint: eye pain, eye redness -: days(s) Onset Description: gradual Location: both eyes If Injury: none Eye Symptoms: redness, pain, discharge, blurry vision Severity scale (0 -10): 7 If Pain, Quality: throbbing Associated Symptoms: headache. denies: nausea/vomiting, cough, rhinorrhea, fever Treatments Prior to Arrival: other (erythromycin ointment) - Related Data Previous Rx's Medication Instructions Recorded Last Taken Type Albuterol Sulfate [Ventolin HFA] 2 puff IH Q4H PRN #1 [email or web address] 01/22/19 Unknown Rx Acetaminophen/Codeine [Tylenol 1 tab PO Q6H PRN #10 tab 03/03/20 Unknown Rx /Codeine # 3 tab] Erythromycin [Erythromycin Ophth 1 cm OU Q4H 8 Days #1 tube 03/03/20 Unknown Rx Oint] Azithromycin(Nf)1% Ophth Soln 1 drops OP TID #1 bottle 03/11/20 Unknown Rx [Azasite 1% Ophth Soln] Doxycycline Hyclate [Doxycycline 100 mg PO Q12HR #14 tab 03/11/20 Unknown Rx Hyclate TAB] predniSONE [Deltasone] 20 mg PO QDAY #5 tab 03/11/20 Unknown Rx Allergies Allergy/AdvReac Type Severity Reaction Status Date / Time ibuprofen [From Motrin] Allergy Vomiting Verified 04/14/18 09:58 ED Review of Systems ROS: Stated complaint: EYE DISCOMFORT/RED/PAIN Other details as noted in HPI Comment: All other systems reviewed and negative ED Past Medical Hx - Past Medical History Previous Medical History?: No Additional medical history: BACK PROBLEMS /CHRONIC PAIN. BRONCHITIS - Surgical History Past Surgical History?: Yes Additional Surgical History: Right leg surgery from [facility] - Social History Smoking Status: Current Every Day Smoker Substance Use Type: None - Medications Home Medications: Home Medications Medication Instructions Recorded Confirmed Last Taken Type Albuterol Sulfate [Ventolin HFA] 2 puff IH Q4H PRN #1 [email or web address] 01/22/19 03/29/19 Unknown Rx Acetaminophen/Codeine [Tylenol 1 tab PO Q6H PRN #10 tab 03/03/20 Unknown Rx /Codeine # 3 tab] Erythromycin [Erythromycin Ophth 1 cm OU Q4H 8 Days #1 tube 03/03/20 Unknown Rx Oint] Azithromycin(Nf)1% Ophth Soln 1 drops OP TID #1 bottle 03/11/20 Unknown Rx [Azasite 1% Ophth Soln] Doxycycline Hyclate [Doxycycline 100 mg PO Q12HR #14 tab 03/11/20 Unknown Rx Hyclate TAB] predniSONE [Deltasone] 20 mg PO QDAY #5 tab 03/11/20 Unknown Rx ED Physical Exam - General Limitations: No Limitations General appearance: alert, in no apparent distress - Head Head exam: Present: atraumatic, normocephalic - Eye Eye exam: Present: normal appearance - ENT ENT exam: Present: mucous membranes moist - Neck Neck exam: Present: normal inspection - Respiratory Respiratory exam: Present: normal lung sounds bilaterally. Absent: respiratory distress - Cardiovascular Cardiovascular Exam: Present: regular rate, normal rhythm. Absent: systolic murmur, diastolic murmur, rubs, gallop - GI/Abdominal GI/Abdominal exam: Present: soft, normal bowel sounds - Rectal Rectal exam: Present: deferred - Extremities Exam Extremities exam: Present: normal inspection - Back Exam Back exam: Present: normal inspection - Neurological Exam Neurological exam: Present: alert, oriented X3 - Psychiatric Psychiatric exam: Present: normal affect, normal mood - Skin Skin exam: Present: warm, dry, intact, normal color. Absent: rash ED Course Vital Signs 03/11/20 03/11/20 14:23 16:26 Temperature 97.9 F Pulse Rate 77 Respiratory 18 20 Rate Blood Pressure 134/92 O2 Sat by Pulse 100 Oximetry ED Medical Decision Making - Medical Decision Making 39-year-old male presents with bilateral eye conjunctivitis ED course: Vision is intact bilaterally. There is no sign of loss of vision. No orbital edema bilaterally Discussed this with the patient. Discussed the patient will be going home on antibiotic eyedrops to apply 4-5 times a day I discussed the patient we'll give her sensor technician referral if needed he'll follow-up if symptoms persist. I discussed the patient is new or worsening symptoms to return to ED immediately Patient's vital signs are stable he's in no distress. Patient is vision is intact, visual acuity test performed, within normal limits. Discussed the patient to follow up with her primary care physician in 3-5 days. Critical care attestation.: If time is entered above; I have spent that time in minutes in the direct care of this critically ill patient, excluding procedure time. ED Disposition Clinical Impression: Bacterial conjunctivitis of both eyes, Iritis Disposition: TO HOME OR SELFCARE Is pt being admited?: No Does the pt Need Aspirin: No Condition: Stable Instructions: Conjunctivitis (ED), Iritis (ED) Additional Instructions: Make sure to follow up with the primary care physician as discussed. take your medications as you've been prescribed. If you have any worsening symptoms or develop new symptoms please return to ED immediately. Prescriptions: Azithromycin(Nf)1% Ophth Soln [Azasite 1% Ophth Soln] 1 drops OP TID #1 bottle predniSONE [Deltasone] 20 mg PO QDAY #5 tab Doxycycline Hyclate [Doxycycline Hyclate TAB] 100 mg PO Q12HR #14 tab Referrals: PRIMARY MD TERRIE [Primary Care Provider] - 3-5 Days PAO RODRIGUEZ MD [Staff Physician] - 3-5 Days [facility], [facility] [Provider Group] - 3-5 Days Forms: Accompanied Note, Work/School Release Form(ED) Time of Disposition: 17:49
[2020-03-11] MEDS ORDERED: ACETAMINOPHEN W/CODEINE 300-30 MG TAB PO ONE (16:10)
[2020-03-11] MEDS ORDERED: TETRACAINE 0.5% OPHTH SOLN 4ML OU ONE (16:12)
== END 2020-03-11 18:12 | disposition home or self-care (01) ==
LOC: ED 14:20
DX: H10.89 Other conjunctivitis (principal); H20.9 Unspecified iridocyclitis; F17.200 Nicotine dependence, unspecified, uncomplicated; Z79.899 Other long term (current) drug therapy; Z98.890 Other specified postprocedural states; Z88.6 Allergy status to analgesic agent
CPT/HCPCS: 99282

== ENCOUNTER 2021-01-28 20:54 | Emergency (ER) | payer SELFPAY ==
[2021-01-29 00:31] VITALS: BP 109/71
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
== END 2021-01-29 05:05 | disposition home or self-care (01) ==
LOC: ED 20:54
DX: J20.9 Acute bronchitis, unspecified (principal); R07.89 Other chest pain; M54.6 Pain in thoracic spine; G89.29 Other chronic pain; F17.200 Nicotine dependence, unspecified, uncomplicated; Z98.890 Other specified postprocedural states; Z79.899 Other long term (current) drug therapy; Z88.8 Allergy status to other drugs, medicaments and biological substances
CPT/HCPCS: 99282